=== PATIENT | female | born 1970 | race African-American/Black ===

== ENCOUNTER 2018-04-09 12:24 | Emergency (ER) | payer BC ==
[~2018-04-09] VITALS: Ht 157.5 cm; Wt 65.8 kg
[2018-04-09 17:25] VITALS: BP 148/86
== END 2018-04-09 17:43 | disposition home or self-care (01) ==
LOC: ER 13:22
DX: M72.2 Plantar fascial fibromatosis (principal); Z98.890 Other specified postprocedural states
CPT/HCPCS: 73630; 81025; 99284

== ENCOUNTER 2020-02-20 14:40 | Emergency (ER) | payer BC ==
[~2020-02-20] VITALS: Ht 157.5 cm; Wt 68.0 kg
[2020-02-20 14:48] VITALS: BP 126/81
== END 2020-02-20 16:26 | disposition home or self-care (01) ==
LOC: ER 14:40
DX: T16.1XXA Foreign body in right ear, initial encounter (principal); X58.XXXA Exposure to other specified factors, initial encounter; Y93.89 Activity, other specified; R03.0 Elevated blood-pressure reading, without diagnosis of hypertension; Y92.89 Other specified places as the place of occurrence of the external cause
CPT/HCPCS: 69209; 99281; 99282